=== PATIENT | male | born 1990 | race African-American/Black ===

== ENCOUNTER 2017-04-23 22:42 | Emergency (ER) | payer MEDICARE, OTHER ==
[~2017-04-23] VITALS: Ht 185.4 cm; Wt 71.7 kg
[2017-04-24] MEDS ORDERED: ONDANSETRON 4 MG/2 ML VIAL IV ONE (04:15)
[2017-04-24] MEDS ORDERED: IV NORMAL SALINE 1000 ML BAG IV ONE (04:15)
[2017-04-24] MEDS ORDERED: HYDROMORPHONE 1 MG/1 ML DISP.SYRIN IV ONE (04:15)
[2017-04-24 04:28] LABS: BASOPHILS % (AUTO) 0.3 % (0.0-2.0); EOSINOPHILS % (AUTO) 0.7 % (0.0-7.0); HEMATOCRIT 42.9 % (40-50); HEMOGLOBIN 13.6 G/DL (14.0-18.0); LYMPHOCYTES # (AUTO) 1.9 K/UL (0.8-4.8); LYMPHOCYTES % (AUTO) 27.4 % (20.5-51.5); MEAN CORPUSCULAR HEMOGLOBIN 26.2 UUG (27.0-31.0); MEAN CORPUSCULAR HGB CONC 32 g/dL (32.0-37.0); MEAN CORPUSCULAR VOLUME 82.4 FL (82.0-92.0); MONOCYTES # (AUTO) 0.5 K/UL (0.1-1.30); MONOCYTES % (AUTO) 7.7 % (0.0-11.0); NEUTROPHILS # (AUTO) 4.6 K/UL (1.8-8.9); NEUTROPHILS % (AUTO) 63.9 % (38.5-71.5); PLATELET COUNT (AUTO) 174 K/UL (150-450); RED BLOOD CELL COUNT(AUTO) 5.21 MIL/UL (4.7-6.1)
[2017-04-24] MEDS ORDERED: ONDANSETRON 4 MG/2 ML VIAL ONE (04:39)
[2017-04-24] MEDS ORDERED: HYDROMORPHONE 1 MG/1 ML DISP.SYRIN ONE (04:39)
[2017-04-24 04:41] LABS: CARBON DIOXIDE 30 mmol/L (21-32); CHLORIDE 103 mmol/L (98-107); CREATININE 0.8 mg/dL (0.6-1.3); GLUCOSE 112 mg/dL (74-106); LIPASE 235 U/L (73-393); POTASSIUM 4.6 mmol/L (3.5-5.1); UREA NITROGEN, BLOOD 13 mg/dL (7-18)
--- NOTE | 2017-04-24 04:52 | NUR ---
Patient is resting comfortably in bed with eyes closed. will continue to monitor pt.
--- NOTE | 2017-04-24 05:00 | NUR ---
pt ambulated to restroom with steady gait, and returned to bed. no complains at this time. will continue to monitor
--- NOTE | 2017-04-24 06:19 | NUR ---
Patient is resting comfortably in bed with eyes closed. will continue to monitor
== END 2017-04-24 06:26 | disposition home or self-care (01) ==
LOC: ER 22:43
DX: K52.9 Noninfective gastroenteritis and colitis, unspecified (principal)
CPT/HCPCS: 83690; 85025; A4663; J1170; J2405; J7030

== ENCOUNTER 2018-01-15 19:46 | Emergency (ER) | payer MEDICARE, OTHER ==
[~2018-01-15] VITALS: Ht 185.4 cm; Wt 83.9 kg
[2018-01-15] MEDS ORDERED: DEPAKOTE (19:54)
[2018-01-15] MEDS ORDERED: IV NORMAL SALINE 1000 ML BAG IV ONE (20:00)
[2018-01-15] MEDS ORDERED: PANTOPRAZOLE SODIUM 40 MG VIAL IV ONE (20:00)
[2018-01-15] MEDS ORDERED: MORPHINE SULFATE 2 MG/1 ML DISP.SYRIN IV ONE (20:00)
[2018-01-15] MEDS ORDERED: ONDANSETRON 4 MG/2 ML VIAL IV ONE (20:00)
[2018-01-15] MEDS ORDERED: ONDANSETRON 4 MG/2 ML VIAL ONE (20:10)
[2018-01-15] MEDS ORDERED: MORPHINE SULFATE 4 MG/1 ML DISP.SYRIN ONE (20:10)
[2018-01-15] MEDS ORDERED: PANTOPRAZOLE SODIUM 40 MG VIAL ONE (20:11)
[2018-01-15 20:22] LABS: BASOPHILS % (AUTO) 0.1 % (0.0-2.0); EOSINOPHILS # (AUTO) 0.2 K/uL (0.0-0.7); EOSINOPHILS % (AUTO) 1.9 % (0.0-7.0); HEMATOCRIT 44.2 % (36.7-47.1); HEMOGLOBIN 14.8 g/dL (12.5-16.3); LYMPHOCYTES % (AUTO) 10.1 % (20.5-51.5); MEAN CORPUSCULAR HEMOGLOBIN 27.9 uug (23.8-33.4); MEAN CORPUSCULAR HGB CONC 34 g/dL (32.5-36.3); MONOCYTES # (AUTO) 0.7 K/uL (2.0-10.0); MONOCYTES % (AUTO) 6.9 % (0.0-11.0); NEUTROPHILS # (AUTO) 8.3 K/uL (1.8-8.9); PLATELET COUNT (AUTO) 158 K/uL (152-348); RED BLOOD CELL COUNT(AUTO) 5.33 MIL/uL (4.06-5.63); WHITE BLOOD COUNT (AUTO) 10.2 K/uL (3.6-10.2)
--- NOTE | 2018-01-15 20:33 | NUR ---
IV PLACED, LABS DRAWN-SENT, MEDS ADMIN, 1L 0.9NS INFUSING, PT TO CT SCAN
[2018-01-15 20:35] LABS: BILIRUBIN,DIRECT 0.2 mg/dL (0.0-0.2); BILIRUBIN,TOTAL 1.1 mg/dL (0.2-1.0); POTASSIUM 3.3 mmol/L (3.5-5.1); TOTAL PROTEIN, SERUM 8.9 g/dL (6.4-8.2)
--- NOTE | 2018-01-15 21:48 | NUR ---
PT HAD IV D/C'D INTACT , ACI/RX X3 GIVEN, PT GOT DRESSED/AMBULATED W/O DIFF/TOOK ALL BELONGINGS.
[2018-01-15 21:51] VITALS: BP 160/74
== END 2018-01-15 21:52 | disposition home or self-care (01) ==
LOC: ER 19:47
DX: R10.84 Generalized abdominal pain (principal); R11.10 Vomiting, unspecified; R19.7 Diarrhea, unspecified
CPT/HCPCS: 83690; 85025; 93005; A4663; C9113; J2270; J2405; J7030

== ENCOUNTER 2018-07-25 12:38 | Emergency (ER) | payer MEDICARE, MEDICAID ==
[~2018-07-25] VITALS: Ht 185.4 cm; Wt 70.3 kg
[~2018-07-25 12:38] MED LIST: DEPAKOTE
--- NOTE | 2018-07-25 13:13 | NUR ---
Patient discharged to home in stable conditon. Written and verbal after care instructions given. Patient verbalizes understanding of instructions.
[2018-07-25] MEDS ORDERED: MUPIROCIN 2% OINT 22 GM TUBE ONE (13:14)
[2018-07-25] MEDS ORDERED: SULFAMETH/TRIMETH 800/160 MG TABLET ONE (13:14)
[2018-07-25] MEDS ORDERED: MUPIROCIN 2% OINT 22 GM TUBE TP ONE (13:15)
[2018-07-25] MEDS ORDERED: SULFAMETH/TRIMETH 800/160 MG TABLET PO ONE (13:15)
== END 2018-07-25 13:32 | disposition home or self-care (01) ==
LOC: ER 12:38
DX: S00.36XA Insect bite (nonvenomous) of nose, initial encounter (principal); S60.463A Insect bite (nonvenomous) of left middle finger, initial encounter; L08.9 Local infection of the skin and subcutaneous tissue, unspecified; W57.XXXA Bitten or stung by nonvenomous insect and other nonvenomous arthropods, initial encounter; Y93.89 Activity, other specified; Y92.89 Other specified places as the place of occurrence of the external cause; Y99.8 Other external cause status
CPT/HCPCS: A4663